=== PATIENT | female | born 1965 | race African-American/Black ===

== ENCOUNTER 2017-06-22 02:14 | Emergency (ER) | payer OTHER ==
[~2017-06-22] VITALS: Ht 170.2 cm; Wt 83.9 kg
[~2017-06-22 02:14] MED LIST: AMLODIPINE BESY10 MG PO; DUCOLAX PO; HCTZ PO; IRON TABLET PO; KLONOPIN0.5 MG PO; LEXAPRO PO; LORTAB 10-5001 EACH PO; LORTAB 10/325MG PO; NEURONTIN600 MG PO; PROZAC PO; TOPAMAX PO; VALIUM10 MG PO; VITAMIN D35000 UNIT PO; VOLTAREN75 MG PO; ZESTRIL40 MG PO
[2017-06-22 03:08] LABS: BASOPHIL% 0.9 % (0-2.5); EOSINOPHIL# 0.2 X10e3 (0-0.7); EOSINOPHIL% 3.3 % (0.0-7.0); HEMATOCRIT 35.8 % (35.0-45.0); HEMOGLOBIN 11.5 gm/dL (12.0-16.0); LYMPHOCYTE# 2.3 X10e3 (1.0-3.5); LYMPHOCYTE% 46.4 % (17.0-45.0); MEAN CELL VOLUME 86.5 FL (83-96); MEAN CORPUSCULAR HEMOGLOBIN 27.9 PG (28-34); MEAN CORPUSCULAR HGB CONC 32.2 g/dL (30-36); MEAN PLATELET VOLUME 8.9 FL (6.5-11.5); MONOCYTE# 0.4 X10e3 (0-1.0); MONOCYTE% 9.2 % (3.0-12.0); NEUTROPHIL% 40.2 % (40-75); PLATELET COUNT 191 X10e3 (140-420); RED BLOOD COUNT 4.14 X10e (3.90-5.30); RED CELL DISTRIBUTION WIDTH 12.8 % (11.0-15.5); WHITE BLOOD COUNT 4.9 X10e3 (4.0-10.5)
[2017-06-22 03:10] LABS: DIFF IND NO
[2017-06-22 03:23] LABS: ALBUMIN SERUM 4.2 g/dL (3.5-5.0); BILIRUBIN, DIRECT 0.1 mg/dL (0.0-0.2); BILIRUBIN,INDIRECT 0.5 mg/dL (0.0-0.9); BILIRUBIN,TOTAL 0.6 mg/dL (0.2-2.0); BUN/CREATININE RATIO 18.57; CALCIUM SERUM 8.4 mg/dL (8.4-10.2); CREATININE SERUM 0.7 mg/dL (0.6-1.4); GLOM FILT RATE Estimated 117.1 mL/min (>60); PROTEIN TOTAL SERUM 7.6 g/dL (6.0-8.3)
[2017-06-22 03:25] LABS: POTASSIUM 2.5 mmol/L (3.5-5.1)
== END 2017-06-22 05:05 | disposition home or self-care (01) ==
LOC: SED 02:14
PROVIDERS: Emergency Medicine
DX: F10.129 Alcohol abuse with intoxication, unspecified (principal); E87.6 Hypokalemia; Z91.040 Latex allergy status; Z88.8 Allergy status to other drugs, medicaments and biological substances
CPT/HCPCS: 36415; 80048; 80076; 85025; 96365; 99284; G0480; J3411